=== PATIENT | female | born 1940 | race Hispanic/Latino ===

== ENCOUNTER 2017-04-05 10:16 | Emergency (ER) | payer MEDICARE ==
[2017-04-05 10:23] VITALS: BMI 18.8
[2017-04-05] MEDS ORDERED: Morphine 4 mg/ml ISec IM STA (10:45)
--- NOTE | 2017-04-05 11:20 | ED PDOC ---
Arrival/HPI - General Historian: Patient - General Chief Complaint: Trauma Time Seen by Provider: 04/05/17 10:30 - History of Present Illness Narrative History of Present Illness (Text): 04/05/17 11:25 77 yo F c/o skin tear to the L lower anterior leg after she fell down an escalator while at a [employer]. Denies any head injury, LOC, neck pain, back pain, joint pain or any other extremity injury or pain. Patient is requesting for plastic surgery consultation. 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 - Anesthesia Hx Anesthesia: Yes Hx Anesthesia Reactions: No Family/Social History - Physician Review Nursing Documentation Reviewed: Yes Family/Social History: No Known Family HX Smoking Status: Never Smoked Hx Alcohol Use: No Hx Substance Use: No Allergies/Home Meds Allergies/Adverse Reactions: Allergies ciprofloxacin [From Cipro] Allergy (Mild, Verified 04/05/17 10:23) RASH Penicillins Allergy (Mild, Verified 04/05/17 10:23) RASH Sulfa (Sulfonamide Antibiotics) Allergy (Mild, Verified 04/05/17 10:23) RASH Home Medications: Home Meds Medication Instructions Recorded Confirmed Alprazolam [Xanax] 1 tab PO HS 04/05/17 04/05/17 Temazepam [Restoril] 0 mg PO HS 04/05/17 04/05/17 Review of Systems - Review of Systems Constitutional: Normal. absent: Fatigue, Weight Change, Fevers Musculoskeletal: Normal. absent: Arthralgias, Back Pain, Neck Pain Skin: Normal, Laceration. absent: Rash, Pruritis, Skin Lesions Physical Exam Vital Signs Reviewed: Yes Appearance: Positive for: Well-Appearing, Other (anxious) Pain Distress: Mild Mental Status: Positive for: Alert and Oriented X 3 - Systems Exam Head: Present: Atraumatic, Normocephalic Lower Extremity: Present: NORMAL PULSES, Normal ROM, Neurovascularly Intact, Capillary Refill < 2 s. No: CALF TENDERNESS, Cyanosis, Tenderness, Swelling, Erythema, Temperature Abnormalties Neurological: Present: GCS=15, CN II-XII Intact, Motor Func Grossly Intact, Normal Sensory Function Skin: Present: Warm, Dry, Other (+large v shaped skin tear ~10 cm in size to the anterior L lower leg, +5 cm skin tear proximal to the larger skin tear ). No: Rashes Medical Decision Making ED Course and Treatment: 04/05/17 11:17 77 yo F c/o skin tear to the L lower anterior leg after she fell down an escalator while at a [employer]. Plan: - Morphine 2 mg IM - Zofran 4 mg ODT - Consult with plastic surgery - Xanax 1 mg PO - Tdap IM Call placed to plastic surgeon Dr. Hale, case was d/w him and images of the injury was sent to him. He was agreeable to evaluate the patient in ED, however , the patient consented with treatment and evaluation with surgeon Dr. Mosquera, who happens to be in house. On re-evaluation, patient is laying in bed comfortably in no acute distress. Currently being evaluated by Dr. Mosquera. Laceration repair done by Dr. Mosquera, the patient tolerated the procedure well. Patient advised that she will need to f/u with Dr. Mosquera after 2 days for wound check. Rx provided for pain. She is requesting for a refill of her xanax, patient given refill of her xanax. Patient advised to return to the ER at any time for any new or worsening symptoms. (Get HIGH,Awa aWshburn) I evaluated this patient with AILYN Deutsch. I called Dr. Hale, Plastics, as per patient's request for plastics. Images of legs were sent with patient's consent. ALBERT Garcia and AILYN Deutsch as witnessed. Attempted to send images to Dr. Hale but he was unable to receive them. At this point Dr. Mosquera, Surgery, was immediately and present in the ED and patient consented to him evaluating her wound. Dr. Mosquera repaired the laceration and provided discharge instructions. We also provided discharge instructions as documented above. Patient was able to walk without difficulty as per ALBERT Henderson. (Deion Hoffman ) - Medication Orders Current Medication Orders: Discontinued Medications Alprazolam (Xanax) 1 mg PO STAT STA PRN Reason: Protocol Stop: 04/05/17 11:21 Last Admin: 04/05/17 11:29 Dose: 1 mg Lidocaine HCl (Lidocaine 1% (20ml)) Confirm Administered Dose 20 ml .ROUTE .STK- MED ONE Stop: 04/05/17 12:01 Morphine Sulfate (Morphine) 2 mg IM STAT STA Stop: 04/05/17 10:46 Last Admin: 04/05/17 10:51 Dose: 2 mg Re-Assess: JACKSON Pain Assessment Document 04/05/17 11:51 AB (Rec: 04/05/17 13:03 AB [id number]) Pain Reassessment Is this a pain reassessment? Yes Sleep Is patient sleeping during reassessment? 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 Disposition/Present on Arrival - Present on Arrival Any Indicators Present on Arrival: No History of DVT/PE: No History of Uncontrolled Diabetes: No Urinary Catheter: No History of Decub. Ulcer: No History Surgical Site Infection Following: None - Disposition Have Diagnosis and Disposition been Completed?: Yes Disposition Time: 12:30 Patient Plan: Discharge - Disposition Diagnosis: Skin tear Disposition: HOME/ ROUTINE Condition: STABLE Discharge Instructions (ExitCare): Laceration (ED), Acute Wound Care (ED) Print Language: [place] Additional Instructions: Thank you for letting us take care of you today. You were treated for skin tear to the L leg. The emergency medical care you received today was directed at your acute symptoms. If you were prescribed any medication, please fill it and take as directed. It may take several days for your symptoms to resolve. Return to the Emergency Department if your symptoms worsen, do not improve, or if you have any other problems. Please contact your doctor in 2 days for re-evaluation and follow up / or call one of the physicians/clinics you have been referred to that are listed on the Patient Visit Information form that is included in your discharge packet. Bring any paperwork you were given at discharge with you along with any medications you are taking to your follow up visit. Our treatment cannot replace ongoing medical care by a primary care provider (PCP) outside of the emergency department. Thank you for allowing the [facility] team to be part of your care today. Prescriptions: ALPRAZolam [Xanax] 1 mg PO BID PRN #10 tab PRN Reason: Anxiety traMADol [Ultram] 50 mg PO TID PRN #15 tab PRN Reason: Pain, Moderate (4-7) Referrals: Sinan Mosquera MD [Staff Provider] - Follow up with primary Forms: [employer] (Vietnamese), WORK NOTE
[2017-04-05] MEDS ORDERED: TDAP Vaccine 0.5 mL Syr IM ONE (11:32)
[2017-04-05] MEDS ORDERED: Lidocaine 1% Inj (20ml) ONE (12:00)
[2017-04-05 12:34] VITALS: O2SAT 100
[2017-04-05 13:18] VITALS: BP 150/82; PULSE 86; RESP 17; TEMP 98.7
--- NOTE | 2017-04-06 16:56 | PN ---
PROCEDURE DATE: 04/06/2017 I saw the patient in the emergency room on Friday morning. The patient had requested plastic surgeon who apparently was unavailable. Consented to me to take a look and I can see it's a 77-year-old woman who had fallen down by the escalator of the cruise ship. The only injury was to the legs, minor one on the right, the minor degloving injury of the bearden, and some bruises on the left. It was more extensive. There was a degloving injury of the skin, which was very thin and it was major probably around 10 inches. The skin has folded up underneath itself and there was exposed fascia beneath. The wounds was irrigated, cleaned with Betadine, and saline. Infiltrated with Xylocaine and a Xylocaine wash. And I was able to fold over the skin and strictured out. There seemed to be very little skin loss per se although the skin was very, very thin in certain places. The wound was injected approximately with 4-0 Nylon; the major strong edges as much as possible. The right leg was dealt with quickly with a stitch. The left leg required much more several areas the skin would not take a stitch and it was lied down in a plan to be basically a skin graft. Approximately 20 stitches were placed followed by Xeroform, followed by Kerlix, followed by an DIONE bandage to them. There was incidentally a lesion above this one, which had happened last week, which was partially healing poor infection. There was no infection that I could see and not very contaminated wound. There is no infection obviously here, probably had a recent sharp - with a similar injury a year ago. The patient is to be seen in my office on Friday. She is from [place] and I am not sure how agreeable she would be to coming back. From my point of view, it can be followed by any doctor. Sinan Mosquera MD
== END 2017-04-05 13:18 | disposition home or self-care (01) ==
LOC: ED 10:16
DX: S81.812A Laceration without foreign body, left lower leg, initial encounter (principal); W10.0XXA Fall (on)(from) escalator, initial encounter; Y93.89 Activity, other specified; Y92.89 Other specified places as the place of occurrence of the external cause; Z23 Encounter for immunization
CPT/HCPCS: 12004; 90471; 90715; 96372; 99285; J2270